=== PATIENT | female | born 1985 | race Caucasian/White ===

== ENCOUNTER 2017-01-03 12:51 | Emergency (ER) | payer OTHER ==
[2017-01-03] MEDS ORDERED: ONDANSETRON 4MG/2ML VIAL (J2405) As Ordered ONE (14:48)
[2017-01-03 15:01] LABS: BASO % 0.5 % (0.0-1.0); EOS # 0.2 K/mm3 (0.0-0.50); EOS % 3.2 % (0.0-3.0); LARGE UNSTAINED CELL # 0.1 K/mm3 (0.0-0.4); LARGE UNSTAINED CELL % 2.3 % (0.0-4.0); LYMPH # 1.9 K/mm3 (1.5-4.5); LYMPH % 37.3 % (24.0-44.0); MEAN CORPUSCULAR HEMOGLOBIN 22.3 pg (27.0-33.0); MEAN CORPUSCULAR HGB CONC 29.6 g/dl (32.0-36.5); MEAN CORPUSCULAR VOLUME 75.1 fl (80.0-96.0); MONO # 0.3 K/mm3 (0.0-0.8); MONO % 6.2 % (0.0-5.0); NEUTROPHILS # 2.5 K/mm3 (1.8-7.7); NEUTROPHILS % 50.5 % (36.0-66.0); PLATELET COUNT, AUTOMATED 318 k/mm3 (150-450); RED CELL DISTRIBUTION WIDTH 14.2 % (11.5-14.5)
[2017-01-03 15:16] LABS: ALBUMIN 3.8 GM/DL (3.2-5.2); ALBUMIN/GLOBULIN RATIO 1.06 (1.00-1.93); ALKALINE PHOSPHATASE 138 U/L (45-117); ALT/SGPT 14 U/L (12-78); ANION GAP 5 MEQ/L (8-16); AST/SGOT 16 U/L (15-37); BILIRUBIN,TOTAL 0.2 MG/DL (0.2-1.0); BLOOD UREA NITROGEN 8 MG/DL (7-18); CALCIUM LEVEL 8.4 MG/DL (8.5-10.1); CARBON DIOXIDE LEVEL 26 MEQ/L (21-32); CHLORIDE LEVEL 110 MEQ/L (98-107); FERRITIN 4 NG/ML (8-252); GLOMERULAR FILTRATION RATE > 60.0 (>60); GLUCOSE, FASTING 77 MG/DL (70-105); MAGNESIUM LEVEL 2.1 MG/DL (1.8-2.4); PHOSPHORUS LEVEL 2.7 MG/DL (2.5-4.9); SODIUM LEVEL 141 MEQ/L (136-145); TOTAL PROTEIN 7.4 GM/DL (6.4-8.2)
[2017-01-03 15:25] LABS: ADD MORPHOLOGY? YES
[2017-01-03 15:47] LABS: HYPOCHROMASIA 1+; OVALOCYTES 1+; POIKILOCYTOSIS 1+
--- NOTE | 2017-01-03 16:54 | EDDOCDS ---
Physician Documentation [facility] Name: Floresita Slade Age: 31 yrs Sex: Female : 1985 Arrival Date: 01/03/2017 Time: 12:51 Bed I4 / M4 Private MD: JOHNNY Chaidez Disposition: 01/03/17 16:15 Discharged to Home/Self Care. Impression: Dehydration, Iron deficiency anemia - absorption. . - Condition is Stable. - Discharge Instructions: Iron Deficiency Anemia, Adult, Dehydration, Adult. - Medication Reconciliation form. - Follow up: Emergency Department; When: As needed; Reason: Worsening of conditions. Follow up: JOHNNY Chaidez; When: Call to arrange an appointment; Reason: Wound/Symptom Recheck, Recheck today's complaints, Worsening of conditions, Continuance of care, Iron infusions. - Problem is chronic. - Symptoms have improved. Historical: - Allergies: Reglan; Codeine Sulfate; Zithromax; - Home Meds: 1. buspirone 20mg Oral tab 1 tab 2 times per day 2. gabapentin 100mg afternoon and 200mg at night Oral cap 3. Hydroxyzine 60mg AM and 30mg HS Oral 4. Nexium 40 mg Oral cpDR 1 cap once daily 5. prazosin 5 mg Oral cap nightly - PMHx: Depression; bowel prolapse into vaginal vault; bladder slipping; GERD; Migraines; Anxiety; night terrors; - PSHx: iud removal; Gastric Bypass; Hernia repair; Hysterectomy; cystocele repair; Rectocele Repair; bladder sling; - Social history: Smoking status: Patient states was never smoker of tobacco. No barriers to communication noted, The patient speaks fluent Maltese, Speaks appropriately for age. - Family history: Not pertinent, Pertinent for. - : The pt / caregiver states he / she is not on anticoagulants. Home medication list is obtained from the patient, [employer] import data. - Exposure Risk Screening:: None identified. 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 1 in. (154.94 cm) (R); Pain 0/10; 14:15 BP 118 / 65 Supine; Pulse 67; jmk 14:15 BP 111 / 68 Standing; Pulse 93; jmk 16:50 BP 117 / 66; Pulse 86; Resp 16; Temp 97.6; Pulse Ox 98% on R/A; jmk 12:53 Body Mass Index 25.51 (61.23 kg, 154.94 cm) dem1 MDM: 13:50 IV Saline Lock ordered. cc10 13:50 NS 0.9% 1000 ml IV at bolus once ordered. cc10 13:50 Orthostatic VS ordered. cc10 13:51 CBC with Diff Ordered. EDMS 13:51 Magnesium Level Ordered. EDMS 13:51 Phosphorous Level Ordered. EDMS 13:51 Complete Comphrensive Metabolic Ordered. EDMS 13:53 Ferritin Ordered. EDMS 14:47 Ondansetron 4 mg IVP once ordered. jmk 14:49 FERRITIN Ordered. EDMS 15:41 CBC with Diff Reviewed. cc10 15:41 Complete Comphrensive Metabolic Reviewed. cc10 15:41 FERRITIN Reviewed. cc10 15:41 Magnesium Level Reviewed. cc10 15:41 Phosphorous Level Reviewed. cc10 16:08 CBC with Diff Reviewed. cc10 16:08 RBC MORPH PROF NO CHARGE Reviewed. cc10 Administered Medications: 14:48 Drug: NS 0.9% 1000 ml [sodium chloride 0.9 % intravenous solution] Route: IV; Rate: jjr bolus; Site: left hand; 14:50 Drug: Ondansetron 4 mg Route: IVP; Site: left hand; jmk 16:51 Follow up: Response: Nausea is resolved [facility] Signatures: Dispatcher [employer] EDLuis Enrique Mejia,BRYSON RN Deana Mckee RN RN ead Coniski, Colin, PA-C PA-C cc10 Carly Christopher RN jjr MTDD
--- NOTE | 2017-01-03 16:54 | EDDOCDS ---
Nurse's Notes [facility] Name: Floresita Slade Age: 31 yrs Sex: Female : 1985 Arrival Date: 01/03/2017 Time: 12:51 Bed I4 / M4 Private MD: JOHNNY Chaidez Diagnosis: Dehydration;Iron deficiency anemia-absorption. Presentation: 01/03 12:54 Presenting complaint: Patient states: "I tried to get in at [facility] but they told me to ead come here." Pt reports "dizziness and fatigue" for approx two weeks. Reports symptoms usually last for approx 1 hour after waking up, states "it just hasn't gone away today.". Adult Sepsis Screening: The patient does not have new or worsening altered mentation. Patient's respiratory rate is less than 22. Systolic blood pressure is greater than 100. Patient has a qSOFA score of 0- Negative Sepsis Screen. Suicide/Homicide risk assessment- the patient denies having any suicidal and/or homicidal ideations and does not present with any other emotional, behavioral or mental health complaints. Status: The patient is a dependent. Transition of care: patient was not received from another setting of care. 12:54 Acuity: FANNIE Level 3 ead 12:54 Method Of Arrival: Walkin/Carried/Asstd ead Triage Assessment: 12:57 General: Appears in no apparent distress, Behavior is appropriate for age, cooperative. ead Pain: Denies pain. HIV screening NA for this visit Offered previously. Neurological: Level of Consciousness is awake, alert, obeys commands, Oriented to person, place, time, Reports dizziness. Respiratory: Airway is patent Respiratory effort is even, unlabored. GI: Reports nausea. Derm: Skin is pink, warm & dry. 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 buspirone 20mg Oral tab 1 tab 2 times per day 2. gabapentin 100mg afternoon and 200mg at night Oral cap 3. Hydroxyzine 60mg AM and 30mg HS Oral 4. Nexium 40 mg Oral cpDR 1 cap once daily 5. prazosin 5 mg Oral cap nightly - PMHx: Depression; bowel prolapse into vaginal vault; bladder slipping; GERD; Migraines; Anxiety; night terrors; - PSHx: iud removal; Gastric Bypass; Hernia repair; Hysterectomy; cystocele repair; Rectocele Repair; bladder sling; - Social history: Smoking status: Patient states was never smoker of tobacco. No barriers to communication noted, The patient speaks fluent Nicaraguan, Speaks appropriately for age. - Family history: Not pertinent, Pertinent for. - : The pt / caregiver states he / she is not on anticoagulants. Home medication list is obtained from the patient, [employer] import data. - Exposure Risk Screening:: None identified. Screenin:17 Screening information is obtained from the patient. Fall risk: No risks identified. [facility] Assistance ADL's: requires no assistance with activities of daily living. Abuse/DV Screen: The patient / caregiver reports he/she is: not in a situation that causes fear, pain or injury. Nutritional screening: No deficits noted. Advance Directives: Currently, there is no health care proxy. There is no active DNR order. There is no living will. There is no Power of Coil Winding Supervisor. Advance directive information has not previously been placed in an [facility] medical record. Further advance directive information is declined. home support is adequate. Assessment: 14:15 General: Appears in no apparent distress, skin warm and dry color satisfactory, Overall k fatigue. without resp distress. abd soft and non distended. 15:33 General: Appears in no apparent distress, Behavior is appropriate for age, lying supine jjr on stretcher using smart phone, IVF per order denies needs at this time. 16:10 General: Appears in no apparent distress, continues to report weakness, states jjr dizziness with movement, 600 mL IVF administered. 16:22 General: Appears. k 16:51 General: Appears popsicle taken and retained/ receptive to discharge. [facility] Vital Signs: 12:53 BP 113 / 54; Pulse 89; Resp 18; Temp 97.7(O); Pulse Ox 100% on R/A; Weight 61.23 kg dem1 (R); Height 5 ft. 1 in. (154.94 cm) (R); Pain 0/10; 14:15 BP 118 / 65 Supine; Pulse 67; jmk 14:15 BP 111 / 68 Standing; Pulse 93; jmk 16:50 BP 117 / 66; Pulse 86; Resp 16; Temp 97.6; Pulse Ox 98% on R/A; jmk 12:53 Body Mass Index 25.51 (61.23 kg, 154.94 cm) [facility] Vitals: 12:53 Log In Time: January 03, 2017 at 12:50. [facility] ED Course: 12:52 Patient visited by Fahad Bahena. dem1 12:52 JOHNNY Chaidez is Private Physician. dem1 12:52 Patient moved to Waiting dem1 12:54 Patient moved to Pre RCE dem1 12:56 Triage Initiated ead 13:23 Patient moved to Triage 2 ar3 13:41 Medardo García PA-C is PHCP. cc10 13:41 Nanci Urena MD is Attending Physician. cc10 13:41 Patient visited by Medarod García PA-C. cc10 13:41 Patient visited by Medardo García PA-C. cc10 13:49 Carly Christopher, BRYSON is Primary Nurse. ar3 13:49 Patient moved to I4 / M4 ar3 14:14 Patient visited by Natty Rivera PCA. jlf 14:17 The patient / caregiver is instructed regarding the plan of care and ED course. jmk 14:17 Missed attempts: 20 gauge X 2. jmk 14:18 Patient visited by Luis Enrique Tamayo,BRYSON. jmk 14:49 Inserted saline lock: 22 gauge in left hand and blood collected. Labs drawn. (by ED jjr staff). Sent per order to lab. 14:49 Missed attempts: 22 gauge X 1 in left antecubital area, Bleeding controlled, band aid jjr applied, catheter tip intact. 14:51 FERRITIN Sent. jmk 15:33 Patient visited by Carly Christopher, RN. jjr 16:11 Patient visited by Carly Christopher, BRYSON. jjr 16:14 JOHNNY Chaidez is Referral Physician. cc10 16:50 Discontinued lock intact, bleeding controlled, pressure dressing applied, No jmk redness/swelling at site. No procedures done that require assistance. Administered Medications: 14:48 Drug: NS 0.9% 1000 ml [sodium chloride 0.9 % intravenous solution] Route: IV; Rate: jjr bolus; Site: left hand; 14:50 Drug: Ondansetron 4 mg Route: IVP; Site: left hand; [facility] 16:51 Follow up: Response: Nausea is resolved [facility] Order Results: Lab Order: CBC with Diff; SPEC'M 01/03/17 13:59 Test: WHITE BLOOD COUNT; Value: 5.0; Range: 4.0-10.0; Units: K/mm3; Status: F Test: RED BLOOD COUNT; Value: 4.40; Range: 4.00-5.40; Units: M/mm3; Status: F Test: HEMOGLOBIN; Value: 9.8; Range: 12.0-16.0; Abnormal: Below low normal; Units: g/dl; Status: F Test: HEMATOCRIT; Value: 33.1; Range: 36.0-47.0; Abnormal: Below low normal; Units: %; Status: F Test: MEAN CORPUSCULAR VOLUME; Value: 75.1; Range: 80.0-96.0; Abnormal: Below low normal; Units: fl; Status: F Test: MEAN CORPUSCULAR HEMOGLOBIN; Value: 22.3; Range: 27.0-33.0; Abnormal: Below low normal; Units: pg; Status: F Test: MEAN CORPUSCULAR HGB CONC; Value: 29.6; Range: 32.0-36.5; Abnormal: Below low normal; Units: g/dl; Status: F Test: RED CELL DISTRIBUTION WIDTH; Value: 14.2; Range: 11.5-14.5; Units: %; Status: F Test: PLATELET COUNT, AUTOMATED; Value: 318; Range: 150-450; Units: k/mm3; Status: F Test: NEUTROPHILS %; Value: 50.5; Range: 36.0-66.0; Units: %; Status: F Test: LYMPH %; Value: 37.3; Range: 24.0-44.0; Units: %; Status: F Test: MONO %; Value: 6.2; Range: 0.0-5.0; Abnormal: Above high normal; Units: %; Status: F Test: EOS %; Value: 3.2; Range: 0.0-3.0; Abnormal: Above high normal; Units: %; Status: F Test: BASO %; Value: 0.5; Range: 0.0-1.0; Units: %; Status: F Test: LARGE UNSTAINED CELL %; Value: 2.3; Range: 0.0-4.0; Units: %; Status: F Test: NEUTROPHILS #; Value: 2.5; Range: 1.8-7.7; Units: K/mm3; Status: F Test: LYMPH #; Value: 1.9; Range: 1.5-4.5; Units: K/mm3; Status: F Test: MONO #; Value: 0.3; Range: 0.0-0.8; Units: K/mm3; Status: F Test: EOS #; Value: 0.2; Range: 0.0-0.50; Units: K/mm3; Status: F Test: BASO #; Value: 0.0; Range: 0.0-0.2; Units: K/mm3; Status: F Test: LARGE UNSTAINED CELL #; Value: 0.1; Range: 0.0-0.4; Units: K/mm3; Status: F Lab Order: Magnesium Level; SPEC 01/03/17 13:59 Test: MAGNESIUM LEVEL; Value: 2.1; Range: 1.8-2.4; Units: MG/DL; Status: F Lab Order: Phosphorous Level; SPEC 01/03/17 13:59 Test: PHOSPHORUS LEVEL; Value: 2.7; Range: 2.5-4.9; Units: MG/DL; Status: F Lab Order: Complete Comphrensive Metabolic; [facility] 01/03/17 13:59 Test: GLUCOSE, FASTING; Value: 77; Range: 70-105; Units: MG/DL; Status: F Test: BLOOD UREA NITROGEN; Value: 8; Range: 7-18; Units: MG/DL; Status: F Test: CREATININE FOR GFR; Value: 0.70; Range: 0.55-1.02; Units: MG/DL; Status: F Test: GLOMERULAR FILTRATION RATE; Value: > 60.0; Range: >60; Status: F Test: SODIUM LEVEL; Value: 141; Range: 136-145; Units: MEQ/L; Status: F Test: POTASSIUM SERUM; Value: 4.0; Range: 3.5-5.1; Units: MEQ/L; Status: F Test: CHLORIDE LEVEL; Value: 110; Range: 98-107; Abnormal: Above high normal; Units: MEQ/L; Status: F Test: CARBON DIOXIDE LEVEL; Value: 26; Range: 21-32; Units: MEQ/L; Status: F Test: ANION GAP; Value: 5; Range: 8-16; Abnormal: Below low normal; Units: MEQ/L; Status: F Test: CALCIUM LEVEL; Value: 8.4; Range: 8.5-10.1; Abnormal: Below low normal; Units: MG/DL; Status: F Test: AST/SGOT; Value: 16; Range: 15-37; Units: U/L; Status: F Test: ALT/SGPT; Value: 14; Range: 12-78; Units: U/L; Status: F Test: ALKALINE PHOSPHATASE; Value: 138; Range: 45-117; Abnormal: Above high normal; Units: U/L; Status: F Test: BILIRUBIN,TOTAL; Value: 0.2; Range: 0.2-1.0; Units: MG/DL; Status: F Test: TOTAL PROTEIN; Value: 7.4; Range: 6.4-8.2; Units: GM/DL; Status: F Test: ALBUMIN; Value: 3.8; Range: 3.2-5.2; Units: GM/DL; Status: F Test: ALBUMIN/GLOBULIN RATIO; Value: 1.06; Range: 1.00-1.93; Status: F Test Note: ; Units are mL/min/1.73 m2 Chronic Kidney Disease Staging per NKF: Stage I & II GFR >=60 Normal to Mildly Decreased Stage III GFR 30-59 Moderately Decreased Stage IV GFR 15-29 Severely Decreased Stage V GFR <15 Very Little GFR Left ESRD GFR <15 on LEAD SCIENTIST Lab Order: FERRITIN; SPEC'01/03/17 13:59 Test: FERRITIN; Value: 4; Range: 8-252; Abnormal: Below low normal; Units: NG/ML; Status: F Lab Order: RBC MORPH PROF NO CHARGE; SPEC01/03/17 13:59 Test: PLATELET ESTIMATE; Range: NORMAL; Status: I Test: HYPOCHROMASIA; Value: 1+; Status: F Test: POIKILOCYTOSIS; Value: 1+; Status: F Test: OVALOCYTES; Value: 1+; Status: F Test: PLATELET ESTIMATE; Value: NORMAL; Range: NORMAL; Status: F Outcome: 16:15 Discharge ordered by Provider. cc10 16:51 Discharge Assessment: Patient awake, alert and oriented x 3. No cognitive and/or jmk functional deficits noted. Patient verbalized understanding of disposition instructions. patient administered narcotics - no. The following High Risk Discharge criteria are identified: None. Discharged to home ambulatory. Condition: good. Discharge instructions given to patient, Instructed on discharge instructions, follow up and referral plans. medication usage, Demonstrated understanding of instructions, medications, Pt was receptive of discharge instructions/ teaching. No special radiology studies were completed. Property :Personal belongings accompany Pt. 16:53 Patient left the ED. [facility] Signatures: Luis Enrique Tamayo,RN RN Carly Stockton RN RN jjr Rabon, Alicia, MINERAL ORE PROCESSING LABOURER MINERAL ORE PROCESSING LABOURER ar3 Fahad Bahena1 Natty Rivera, MINERAL ORE PROCESSING LABOURER MINERAL ORE PROCESSING LABOURER luis miguelf Deana Gupta RN RN ead Coniski, Colin, PA-C PA-C cc10 EULA
--- NOTE | 2017-01-05 17:53 | EDDOCDS ---
Physician Documentation [facility] Name: Floresita Slade Age: 31 yrs Sex: Female : 1985 Arrival Date: 01/03/2017 Time: 12:51 Bed I4 / M4 Private MD: JOHNNY Chaidez Disposition: 01/03/17 16:15 Discharged to Home/Self Care. Impression: Dehydration, Iron deficiency anemia - absorption. . - Condition is Stable. - Discharge Instructions: Iron Deficiency Anemia, Adult, Dehydration, Adult. - Medication Reconciliation form. - Follow up: Emergency Department; When: As needed; Reason: Worsening of conditions. Follow up: JOHNNY Chaidez; When: Call to arrange an appointment; Reason: Wound/Symptom Recheck, Recheck today's complaints, Worsening of conditions, Continuance of care, Iron infusions. - Problem is chronic. - Symptoms have improved. Historical: - Allergies: Reglan; Codeine Sulfate; Zithromax; - Home Meds: 1. buspirone 20mg Oral tab 1 tab 2 times per day 2. gabapentin 100mg afternoon and 200mg at night Oral cap 3. Hydroxyzine 60mg AM and 30mg HS Oral 4. Nexium 40 mg Oral cpDR 1 cap once daily 5. prazosin 5 mg Oral cap nightly - PMHx: Depression; bowel prolapse into vaginal vault; bladder slipping; GERD; Migraines; Anxiety; night terrors; - PSHx: iud removal; Gastric Bypass; Hernia repair; Hysterectomy; cystocele repair; Rectocele Repair; bladder sling; - Social history: Smoking status: Patient states was never smoker of tobacco. No barriers to communication noted, The patient speaks fluent Gibraltarian, Speaks appropriately for age. - Family history: Not pertinent, Pertinent for. - : The pt / caregiver states he / she is not on anticoagulants. Home medication list is obtained from the patient, [employer] import data. - Exposure Risk Screening:: None identified. 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 1 in. (154.94 cm) (R); Pain 0/10; 14:15 BP 118 / 65 Supine; Pulse 67; jmk 14:15 BP 111 / 68 Standing; Pulse 93; jmk 16:50 BP 117 / 66; Pulse 86; Resp 16; Temp 97.6; Pulse Ox 98% on R/A; jmk 12:53 Body Mass Index 25.51 (61.23 kg, 154.94 cm) dem1 MDM: 13:50 IV Saline Lock ordered. cc10 13:50 NS 0.9% 1000 ml IV at bolus once ordered. cc10 13:50 Orthostatic VS ordered. cc10 13:51 CBC with Diff Ordered. EDMS 13:51 Magnesium Level Ordered. EDMS 13:51 Phosphorous Level Ordered. EDMS 13:51 Complete Comphrensive Metabolic Ordered. EDMS 13:53 Ferritin Ordered. EDMS 14:47 Ondansetron 4 mg IVP once ordered. jmk 14:49 FERRITIN Ordered. EDMS 15:41 CBC with Diff Reviewed. cc10 15:41 Complete Comphrensive Metabolic Reviewed. cc10 15:41 FERRITIN Reviewed. cc10 15:41 Magnesium Level Reviewed. cc10 15:41 Phosphorous Level Reviewed. cc10 16:08 CBC with Diff Reviewed. cc10 16:08 RBC MORPH PROF NO CHARGE Reviewed. cc10 17:49 [facility] Payment Agreement was scanned into Tap[employer] and attached to record. [facility] 17:49 Financial registration complete. [facility] 01/04 11:46 T-Sheet-- Draft Copy was scanned into [employer] and attached to record. gb Administered Medications: 01/03 14:48 Drug: NS 0.9% 1000 ml [sodium chloride 0.9 % intravenous solution] Route: IV; Rate: jjr bolus; Site: left hand; 14:50 Drug: Ondansetron 4 mg Route: IVP; Site: left hand; [facility] 16:51 Follow up: Response: Nausea is resolved andre Signatures: Dispatcher [employer] EDMS Luis Enrique Tamayo,RN RN Sheree Fleming, Reg Reg Deana LillyRN RN Medardo Poe, PA-C PA-C cc10 Livier Martin Carly Thapa RN jjr The chart was reviewed and I authenticate all verbal orders and agree with the evaluation and treatment provided.Attachments: 17:49 [facility] Payment Agreement gjb 01/04 11:46 T-Sheet-- Draft Copy gb Chart Complete MTDD
--- NOTE | 2017-01-05 17:53 | EDDOCDS ---
Nurse's Notes [facility] Name: Floresita Slade Age: 31 yrs Sex: Female : 1985 Arrival Date: 01/03/2017 Time: 12:51 Bed I4 / M4 Private MD: JOHNNY Chaidez Diagnosis: Dehydration;Iron deficiency anemia-absorption. Presentation: 01/03 12:54 Presenting complaint: Patient states: "I tried to get in at [facility] but they told me to ead come here." Pt reports "dizziness and fatigue" for approx two weeks. Reports symptoms usually last for approx 1 hour after waking up, states "it just hasn't gone away today.". Adult Sepsis Screening: The patient does not have new or worsening altered mentation. Patient's respiratory rate is less than 22. Systolic blood pressure is greater than 100. Patient has a qSOFA score of 0- Negative Sepsis Screen. Suicide/Homicide risk assessment- the patient denies having any suicidal and/or homicidal ideations and does not present with any other emotional, behavioral or mental health complaints. Status: The patient is a dependent. Transition of care: patient was not received from another setting of care. 12:54 Acuity: FANNIE Level 3 ead 12:54 Method Of Arrival: Walkin/Carried/Asstd ead Triage Assessment: 12:57 General: Appears in no apparent distress, Behavior is appropriate for age, cooperative. ead Pain: Denies pain. HIV screening NA for this visit Offered previously. Neurological: Level of Consciousness is awake, alert, obeys commands, Oriented to person, place, time, Reports dizziness. Respiratory: Airway is patent Respiratory effort is even, unlabored. GI: Reports nausea. Derm: Skin is pink, warm & dry. 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 buspirone 20mg Oral tab 1 tab 2 times per day 2. gabapentin 100mg afternoon and 200mg at night Oral cap 3. Hydroxyzine 60mg AM and 30mg HS Oral 4. Nexium 40 mg Oral cpDR 1 cap once daily 5. prazosin 5 mg Oral cap nightly - PMHx: Depression; bowel prolapse into vaginal vault; bladder slipping; GERD; Migraines; Anxiety; night terrors; - PSHx: iud removal; Gastric Bypass; Hernia repair; Hysterectomy; cystocele repair; Rectocele Repair; bladder sling; - Social history: Smoking status: Patient states was never smoker of tobacco. No barriers to communication noted, The patient speaks fluent Libyan, Speaks appropriately for age. - Family history: Not pertinent, Pertinent for. - : The pt / caregiver states he / she is not on anticoagulants. Home medication list is obtained from the patient, [employer] import data. - Exposure Risk Screening:: None identified. Screenin:17 Screening information is obtained from the patient. Fall risk: No risks identified. [facility] Assistance ADL's: requires no assistance with activities of daily living. Abuse/DV Screen: The patient / caregiver reports he/she is: not in a situation that causes fear, pain or injury. Nutritional screening: No deficits noted. Advance Directives: Currently, there is no health care proxy. There is no active DNR order. There is no living will. There is no Power of Competitive Shopper. Advance directive information has not previously been placed in an [facility] medical record. Further advance directive information is declined. home support is adequate. Assessment: 14:15 General: Appears in no apparent distress, skin warm and dry color satisfactory, Overall k fatigue. without resp distress. abd soft and non distended. 15:33 General: Appears in no apparent distress, Behavior is appropriate for age, lying supine jjr on stretcher using smart phone, IVF per order denies needs at this time. 16:10 General: Appears in no apparent distress, continues to report weakness, states jjr dizziness with movement, 600 mL IVF administered. 16:22 General: Appears. k 16:51 General: Appears popsicle taken and retained/ receptive to discharge. [facility] Vital Signs: 12:53 BP 113 / 54; Pulse 89; Resp 18; Temp 97.7(O); Pulse Ox 100% on R/A; Weight 61.23 kg dem1 (R); Height 5 ft. 1 in. (154.94 cm) (R); Pain 0/10; 14:15 BP 118 / 65 Supine; Pulse 67; jmk 14:15 BP 111 / 68 Standing; Pulse 93; jmk 16:50 BP 117 / 66; Pulse 86; Resp 16; Temp 97.6; Pulse Ox 98% on R/A; jmk 12:53 Body Mass Index 25.51 (61.23 kg, 154.94 cm) [facility] Vitals: 12:53 Log In Time: January 03, 2017 at 12:50. [facility] ED Course: 12:52 Patient visited by Fahad Bahena. dem1 12:52 JOHNNY Chaidez is Private Physician. dem1 12:52 Patient moved to Waiting dem1 12:54 Patient moved to Pre RCE dem1 12:56 Triage Initiated ead 13:23 Patient moved to Triage 2 ar3 13:41 Medardo García PA-C is PHCP. cc10 13:41 Nanci Urena MD is Attending Physician. cc10 13:41 Patient visited by Medardo García PA-C. cc10 13:41 Patient visited by Medardo García PA-C. cc10 13:49 Carly Christopher, BRYSON is Primary Nurse. ar3 13:49 Patient moved to I4 / M4 ar3 14:14 Patient visited by Natty Rivera PCA. jlf 14:17 The patient / caregiver is instructed regarding the plan of care and ED course. jmk 14:17 Missed attempts: 20 gauge X 2. jmk 14:18 Patient visited by Luis Enrique Tamayo,BRYSON. jmk 14:49 Inserted saline lock: 22 gauge in left hand and blood collected. Labs drawn. (by ED jjr staff). Sent per order to lab. 14:49 Missed attempts: 22 gauge X 1 in left antecubital area, Bleeding controlled, band aid jjr applied, catheter tip intact. 14:51 FERRITIN Sent. jmk 15:33 Patient visited by Carly Christopher, RN. jjr 16:11 Patient visited by Carly Christopher, BRYSON. jjr 16:14 JOHNNY Chaidez is Referral Physician. cc10 16:50 Discontinued lock intact, bleeding controlled, pressure dressing applied, No jmk redness/swelling at site. No procedures done that require assistance. 17:49 [facility] Payment Agreement was scanned into [employer] and attached to record. gjb 01/04 11:46 T-Sheet-- Draft Copy was scanned into [employer] and attached to record. gb Administered Medications: 01/03 14:48 Drug: NS 0.9% 1000 ml [sodium chloride 0.9 % intravenous solution] Route: IV; Rate: jjr bolus; Site: left hand; 14:50 Drug: Ondansetron 4 mg Route: IVP; Site: left hand; [facility] 16:51 Follow up: Response: Nausea is resolved [facility] Order Results: Lab Order: CBC with Diff; SPEC'M 01/03/17 13:59 Test: WHITE BLOOD COUNT; Value: 5.0; Range: 4.0-10.0; Units: K/mm3; Status: F Test: RED BLOOD COUNT; Value: 4.40; Range: 4.00-5.40; Units: M/mm3; Status: F Test: HEMOGLOBIN; Value: 9.8; Range: 12.0-16.0; Abnormal: Below low normal; Units: g/dl; Status: F Test: HEMATOCRIT; Value: 33.1; Range: 36.0-47.0; Abnormal: Below low normal; Units: %; Status: F Test: MEAN CORPUSCULAR VOLUME; Value: 75.1; Range: 80.0-96.0; Abnormal: Below low normal; Units: fl; Status: F Test: MEAN CORPUSCULAR HEMOGLOBIN; Value: 22.3; Range: 27.0-33.0; Abnormal: Below low normal; Units: pg; Status: F Test: MEAN CORPUSCULAR HGB CONC; Value: 29.6; Range: 32.0-36.5; Abnormal: Below low normal; Units: g/dl; Status: F Test: RED CELL DISTRIBUTION WIDTH; Value: 14.2; Range: 11.5-14.5; Units: %; Status: F Test: PLATELET COUNT, AUTOMATED; Value: 318; Range: 150-450; Units: k/mm3; Status: F Test: NEUTROPHILS %; Value: 50.5; Range: 36.0-66.0; Units: %; Status: F Test: LYMPH %; Value: 37.3; Range: 24.0-44.0; Units: %; Status: F Test: MONO %; Value: 6.2; Range: 0.0-5.0; Abnormal: Above high normal; Units: %; Status: F Test: EOS %; Value: 3.2; Range: 0.0-3.0; Abnormal: Above high normal; Units: %; Status: F Test: BASO %; Value: 0.5; Range: 0.0-1.0; Units: %; Status: F Test: LARGE UNSTAINED CELL %; Value: 2.3; Range: 0.0-4.0; Units: %; Status: F Test: NEUTROPHILS #; Value: 2.5; Range: 1.8-7.7; Units: K/mm3; Status: F Test: LYMPH #; Value: 1.9; Range: 1.5-4.5; Units: K/mm3; Status: F Test: MONO #; Value: 0.3; Range: 0.0-0.8; Units: K/mm3; Status: F Test: EOS #; Value: 0.2; Range: 0.0-0.50; Units: K/mm3; Status: F Test: BASO #; Value: 0.0; Range: 0.0-0.2; Units: K/mm3; Status: F Test: LARGE UNSTAINED CELL #; Value: 0.1; Range: 0.0-0.4; Units: K/mm3; Status: F Lab Order: Magnesium Level; [facility] 01/03/17 13:59 Test: MAGNESIUM LEVEL; Value: 2.1; Range: 1.8-2.4; Units: MG/DL; Status: F Lab Order: Phosphorous Level; [facility] 01/03/17 13:59 Test: PHOSPHORUS LEVEL; Value: 2.7; Range: 2.5-4.9; Units: MG/DL; Status: F Lab Order: Complete Comphrensive Metabolic; [facility] 01/03/17 13:59 Test: GLUCOSE, FASTING; Value: 77; Range: 70-105; Units: MG/DL; Status: F Test: BLOOD UREA NITROGEN; Value: 8; Range: 7-18; Units: MG/DL; Status: F Test: CREATININE FOR GFR; Value: 0.70; Range: 0.55-1.02; Units: MG/DL; Status: F Test: GLOMERULAR FILTRATION RATE; Value: > 60.0; Range: >60; Status: F Test: SODIUM LEVEL; Value: 141; Range: 136-145; Units: MEQ/L; Status: F Test: POTASSIUM SERUM; Value: 4.0; Range: 3.5-5.1; Units: MEQ/L; Status: F Test: CHLORIDE LEVEL; Value: 110; Range: 98-107; Abnormal: Above high normal; Units: MEQ/L; Status: F Test: CARBON DIOXIDE LEVEL; Value: 26; Range: 21-32; Units: MEQ/L; Status: F Test: ANION GAP; Value: 5; Range: 8-16; Abnormal: Below low normal; Units: MEQ/L; Status: F Test: CALCIUM LEVEL; Value: 8.4; Range: 8.5-10.1; Abnormal: Below low normal; Units: MG/DL; Status: F Test: AST/SGOT; Value: 16; Range: 15-37; Units: U/L; Status: F Test: ALT/SGPT; Value: 14; Range: 12-78; Units: U/L; Status: F Test: ALKALINE PHOSPHATASE; Value: 138; Range: 45-117; Abnormal: Above high normal; Units: U/L; Status: F Test: BILIRUBIN,TOTAL; Value: 0.2; Range: 0.2-1.0; Units: MG/DL; Status: F Test: TOTAL PROTEIN; Value: 7.4; Range: 6.4-8.2; Units: GM/DL; Status: F Test: ALBUMIN; Value: 3.8; Range: 3.2-5.2; Units: GM/DL; Status: F Test: ALBUMIN/GLOBULIN RATIO; Value: 1.06; Range: 1.00-1.93; Status: F Test Note: ; Units are mL/min/1.73 m2 Chronic Kidney Disease Staging per NKF: Stage I & II GFR >=60 Normal to Mildly Decreased Stage III GFR 30-59 Moderately Decreased Stage IV GFR 15-29 Severely Decreased Stage V GFR <15 Very Little GFR Left ESRD GFR <15 on COMMUNICATIONS EQUIPMENT SUPERVISOR Lab Order: FERRITIN; SPEC'01/03/17 13:59 Test: FERRITIN; Value: 4; Range: 8-252; Abnormal: Below low normal; Units: NG/ML; Status: F Lab Order: RBC MORPH PROF NO CHARGE; SPEC'01/03/17 13:59 Test: PLATELET ESTIMATE; Range: NORMAL; Status: I Test: HYPOCHROMASIA; Value: 1+; Status: F Test: POIKILOCYTOSIS; Value: 1+; Status: F Test: OVALOCYTES; Value: 1+; Status: F Test: PLATELET ESTIMATE; Value: NORMAL; Range: NORMAL; Status: F Outcome: 16:15 Discharge ordered by Provider. cc10 16:51 Discharge Assessment: Patient awake, alert and oriented x 3. No cognitive and/or k functional deficits noted. Patient verbalized understanding of disposition instructions. patient administered narcotics - no. The following High Risk Discharge criteria are identified: None. Discharged to home ambulatory. Condition: good. Discharge instructions given to patient, Instructed on discharge instructions, follow up and referral plans. medication usage, Demonstrated understanding of instructions, medications, Pt was receptive of discharge instructions/ teaching. No special radiology studies were completed. Property :Personal belongings accompany Pt. 16:53 Patient left the ED. [facility] Signatures: Luis Enrique Tamayo,RN RN Sheree Fleming, Reg Reg Carly Hunter, RN Saray Kaplan, MACHINE CLEANER MACHINE CLEANER ar3 Fahad Bahena dem1 Natty Rivera, MACHINE CLEANER MACHINE CLEANER luis miguelf Deana Gupta,RN Medardo Rasmussen, PA-Shelia PAAyo cc10 Livier Martin Chart Complete EULA
--- NOTE | 2017-01-05 17:53 | EDDOCDS ---
Physician Documentation [facility] Name: Floresita Slade Age: 31 yrs Sex: Female : 1985 Arrival Date: 01/03/2017 Time: 12:51 Bed I4 / M4 Private MD: JOHNNY Chaidez Disposition: 01/03/17 16:15 Discharged to Home/Self Care. Impression: Dehydration, Iron deficiency anemia - absorption. . - Condition is Stable. - Discharge Instructions: Iron Deficiency Anemia, Adult, Dehydration, Adult. - Medication Reconciliation form. - Follow up: Emergency Department; When: As needed; Reason: Worsening of conditions. Follow up: JOHNNY Chaidez; When: Call to arrange an appointment; Reason: Wound/Symptom Recheck, Recheck today's complaints, Worsening of conditions, Continuance of care, Iron infusions. - Problem is chronic. - Symptoms have improved. Historical: - Allergies: Reglan; Codeine Sulfate; Zithromax; - Home Meds: 1. buspirone 20mg Oral tab 1 tab 2 times per day 2. gabapentin 100mg afternoon and 200mg at night Oral cap 3. Hydroxyzine 60mg AM and 30mg HS Oral 4. Nexium 40 mg Oral cpDR 1 cap once daily 5. prazosin 5 mg Oral cap nightly - PMHx: Depression; bowel prolapse into vaginal vault; bladder slipping; GERD; Migraines; Anxiety; night terrors; - PSHx: iud removal; Gastric Bypass; Hernia repair; Hysterectomy; cystocele repair; Rectocele Repair; bladder sling; - Social history: Smoking status: Patient states was never smoker of tobacco. No barriers to communication noted, The patient speaks fluent Haitian, Speaks appropriately for age. - Family history: Not pertinent, Pertinent for. - : The pt / caregiver states he / she is not on anticoagulants. Home medication list is obtained from the patient, [employer] import data. - Exposure Risk Screening:: None identified. 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 1 in. (154.94 cm) (R); Pain 0/10; 14:15 BP 118 / 65 Supine; Pulse 67; jmk 14:15 BP 111 / 68 Standing; Pulse 93; jmk 16:50 BP 117 / 66; Pulse 86; Resp 16; Temp 97.6; Pulse Ox 98% on R/A; jmk 12:53 Body Mass Index 25.51 (61.23 kg, 154.94 cm) dem1 MDM: 13:50 IV Saline Lock ordered. cc10 13:50 NS 0.9% 1000 ml IV at bolus once ordered. cc10 13:50 Orthostatic VS ordered. cc10 13:51 CBC with Diff Ordered. EDMS 13:51 Magnesium Level Ordered. EDMS 13:51 Phosphorous Level Ordered. EDMS 13:51 Complete Comphrensive Metabolic Ordered. EDMS 13:53 Ferritin Ordered. EDMS 14:47 Ondansetron 4 mg IVP once ordered. jmk 14:49 FERRITIN Ordered. EDMS 15:41 CBC with Diff Reviewed. cc10 15:41 Complete Comphrensive Metabolic Reviewed. cc10 15:41 FERRITIN Reviewed. cc10 15:41 Magnesium Level Reviewed. cc10 15:41 Phosphorous Level Reviewed. cc10 16:08 CBC with Diff Reviewed. cc10 16:08 RBC MORPH PROF NO CHARGE Reviewed. cc10 17:49 [facility] Payment Agreement was scanned into [employer] and attached to record. [facility] 17:49 Financial registration complete. [facility] 01/04 11:46 T-Sheet-- Draft Copy was scanned into [employer] and attached to record. gb Administered Medications: 01/03 14:48 Drug: NS 0.9% 1000 ml [sodium chloride 0.9 % intravenous solution] Route: IV; Rate: jjr bolus; Site: left hand; 14:50 Drug: Ondansetron 4 mg Route: IVP; Site: left hand; [facility] 16:51 Follow up: Response: Nausea is resolved andre Signatures: Dispatcher [employer] EDMS Luis Enrique Tamayo,RN RN Sheree Fleming, Reg Reg Deana LillyRN RN Medardo Poe, PA-C PA-C cc10 Livier Martin Carly Thapa RN jjr The chart was reviewed and I authenticate all verbal orders and agree with the evaluation and treatment provided.Attachments: 17:49 [facility] Payment Agreement gjb 01/04 11:46 T-Sheet-- Draft Copy gb Chart Complete MTDD
== END 2017-01-03 16:53 | disposition home or self-care (01) ==
LOC: M ED 12:51
DX: D50.9 Iron deficiency anemia, unspecified (principal); F32.9 Major depressive disorder, single episode, unspecified; K21.9 Gastro-esophageal reflux disease without esophagitis; F41.9 Anxiety disorder, unspecified; Z98.84 Bariatric surgery status; Z79.899 Other long term (current) drug therapy; Z88.8 Allergy status to other drugs, medicaments and biological substances; Z88.5 Allergy status to narcotic agent; Z88.1 Allergy status to other antibiotic agents
CPT/HCPCS: 36415; 80053; 82728; 83735; 84100; 85025; 96374; 99284; J2405